=== PATIENT | male | born 1995 | race Two or more races ===

== ENCOUNTER 2025-05-30 15:46 | Emergency (ER) | payer OTHER, SELFPAY ==
[2025-05-30 15:47] VITALS: BMI 35.2
[2025-05-30 16:15] VITALS: BP 141/81; PULSE 77; RESP 18; TEMP 37.1; O2SAT 96
--- NOTE | 2025-05-30 16:19 | EDNOTE_ITS ---
<Statement entered by Vaishnavi Carreno MD - 06/14/25 14:18> As co-signing physician, I was present and available for consult prn. I concur with the plan and care as documented by the midlevel provider. ED General RME/HPI General Chief complaint: General Adult/Misc Complain Stated complaint: A BALL GROWING IN MY R HEEL X2 WEEKS Time Seen by Provider: 05/30/25 16:04 Arrival date/time: 05/30/25 15:46 This is a 30-year-old male that comes into the emergency room with complaints of right heel pain. Patient states he has had a bump to his right heel has been going on for years. Patient states it started hurting recently. Patient denies trauma. Related Data Previous Rx's ?Medication ?Instructions ?Recorded ibuprofen 800 mg tablet 800 mg PO Q6H PRN pain #20 t abs 05/30/25 Allergies Allergy/AdvReac Type Severity Reaction Status Date / Time No Known Allergies Allergy Verified 05/30/25 15:51 Review of Systems Review of Systems Systems Reviewed: All systems reviewed, normal except as documented Past Medical History Past Medical History Comments PMH COMMENT: Denies ED Exam Narrative Physical exam: VITAL SIGNS: Reviewed. GENERAL APPEARANCE: Alert and interactive, follows commands, no acute distress HEAD AND FACE: Non-traumatic. ENT: PERRL, conjuctiva pink and clear, eyelid no trauma, Mucous membrane moist. NECK: Supple, nontender, no nuchal rigidity. CHEST: No tenderness, no crepitus, no paradoxical movement, no retractions. LUNGS: breathing even and unlabored HEART: Regular rate, cap refill less than 2 seconds ABDOMEN: Soft, nondistended, no guarding, nontender, no rebound, no masses, NEUROLOGICAL: Gross motor function intact sensory function intact, Appropriate for age. MUSCULOSKELETAL: low back nontender, full range of motion. EXTREMITIES: No redness no swelling no skin breakdown on bilateral foot and leg. Distal neurovascular status intact bilateral foot SKIN: Color pink, dry Course Quality Measures none Orders Category Date Time Status XR foot comp RT min 3V Stat Exams 05/30/25 16:20 Completed Acetaminophen Tab [Tylenol ES Tab] Med 05/30/25 16:20 Discontinued 1,000 mg PO X1 ONE Ibuprofen Tab [Motrin Tab] Med 05/30/25 16:20 Discontinued 800 mg PO X1 ONE Vital Signs Vital signs: Vital Signs Temperature 98.7 F 05/30/25 16:15 Pulse Rate 77 05/30/25 16:15 Respiratory Rate 18 05/30/25 16:15 Blood Pressure 141/81 H 05/30/25 16:15 Pulse Oximetry (%) 96 05/30/25 16:15 Oxygen Delivery Method Room Air 05/30/25 16:15 Discharge Plan Plan Patient Disposition: HOME (Self Care) Patient condition on transfer: Stable Prescriptions/Referrals Prescriptions/Med Rec: New ibuprofen 800 mg tablet 800 mg PO Q6H PRN (Reason: pain) Qty: 20 0RF Referrals: Fritz Egan PA-C [Primary Care Provider] - In 1 week Problem List Clinical Impression: Acute foot pain Patient/Caregiver Discharge Instructions Discharge Activity: activity as tolerated Education Materials: ED RICE Additional Instructions: Follow up with primary provider in 1-2 days. Come back to ED if symptoms change or worsen Print Language: Arabic Stand Alone Forms: [employer] Award Info., Patient Portal Info Letter PA/NATALIE Supervising Physician PA/NATALIE Supervising Physician: ayaan MIXON Narrative MDM hospital course (for use when minimal MDM required): Patient given Tylenol and ibuprofen. Patient feels better. Patient told to ice elevate to help with pain. Patient told to follow-up with primary provider in 1 to 2 days. Patient verbalized understanding. Clinical Information Provided by: patient Medical Records reviewed [facility] Meds/Rx considered, not ordered None Labs/Rad/Tests considered, not ordered Describe: x ray foot: FINDINGS: No fracture or dislocation No foreign body IMPRESSION: No fracture or dislocation Chronic Illness/Social Conditions which may negatively complicate care or outcome(s)-explain: None or not applicable Labs Labs: none Imaging Imaging interpretation: other (Previous note) Medication Administration(s) Medication Administration History Discontinued Medications Acetaminophen (Acetaminophen 500 Mg Tablet) 1,000 mg PO X1 ONE Stop: 05/30/25 16:21 Last Admin: 05/30/25 16:38 Dose: 1,000 mg Documented By: TEJAS Ibuprofen (Ibuprofen Tab 400 Mg Tablet) 800 mg PO X1 ONE Stop: 05/30/25 16:21 Last Admin: 05/30/25 16:38 Dose: 800 mg Documented By: TEJAS See JOJO
--- NOTE | 2025-05-30 16:20 | XR_ITS ---
Examination: Foot, right, 3 views Technique: AP, oblique, lateral views foot, 3 views Date and time of exam: May 30, 2025, 1641 hours INDICATIONS: Sudden onset right foot pain beginning 2 weeks ago FINDINGS: No fracture or dislocation No foreign body IMPRESSION: No fracture or dislocation
[2025-05-30] MEDS: ACETAMINOPHEN 500 MG TABLET 1000 MG PO (16:38)
[2025-05-30] MEDS: IBUPROFEN TAB 400 MG TABLET 800 MG PO (16:38)
== END 2025-05-30 18:10 | disposition home or self-care (01) ==
PROVIDERS: Emergency Provider Nurse Practitioner Family; PCP Physician Assistant
DX: M79.671 Pain in right foot (principal)
CPT/HCPCS: 73630; 99283; A9270